=== PATIENT | female | born 2000 | race Caucasian/White ===

== ENCOUNTER 2023-12-28 17:41 | Emergency (ER) | payer SELFPAY ==
[2023-12-28] MEDS ORDERED: Boostrix 0.5 ML (Tdap) VIAL (>/=7 yrs of age) ONE (20:03)
[2023-12-28 20:49] LABS: Pregnancy Test - Urine (BHCG) Negative (Negative); Pregu Control Background? CLEAR/WHITE (CLR/WHITE); Pregu Control Bar Appear? YES (CONTROL BAR); Specific Gravity 1.009 (1.002-1.036)
== END 2023-12-28 21:49 | disposition home or self-care (01) ==
LOC: ERS 17:41
DX: L03.011 Cellulitis of right finger (principal); F17.290 Nicotine dependence, other tobacco product, uncomplicated; Z55.6 Problems related to health literacy
CPT/HCPCS: 81025; 90471; 90715